=== PATIENT | male | born 1950 | race Caucasian/White ===

== ENCOUNTER 2019-04-25 14:23 | Emergency (ER) | payer MEDICARE, MEDICAID ==
[~2019-04-25] VITALS: Ht 177.8 cm; Wt 63.5 kg
--- NOTE | 2019-04-25 14:50 | NUR ---
PT REPORTS UROLOGIST AT THE IN DR FRANCO
[2019-04-25 15:08] LABS: CLARITY,URINE CLOUDY (Clear); COLOR,URINE YELLOW (Yellow); GLUCOSE, URINE NEGATIVE (Neg); KETONES,URINE NEGATIVE (Neg); LEUKOCYTE ESTERASE ,URINE NEGATIVE (Neg); NITRITES, URINE NEGATIVE (Neg); OCCULT BLOOD,URINE LARGE (Neg); PH,URINE 5.5 (4.8-8.0); PROTEIN,URINE NEGATIVE (Neg); UA COLLECTION TYPE CLN CATCH MIDSTREAM; UROBILINOGEN,URINE 0.2 E.U/dL (0.2-1.0)
[2019-04-25 15:19] LABS: BACTERIA,URINE 1+ /HPF (Neg); MUCUS STRANDS FEW /LPF (Neg); SQUAMOUS EPITHELIAL CELL,UR FEW /LPF (FEW)
[2019-04-25 15:20] LABS: RBC,URINE TNTC /HPF (0-2)
[2019-04-25 16:36] LABS: BASOPHILS # (AUTO) 0.1 X10'3 (0-0.2); BASOPHILS % (AUTO) 1.1 % (0-1); EOSINOPHILS # (AUTO) 0.4 X10'3 (0-0.9); EOSINOPHILS % (AUTO) 4.8 % (0-6); HEMATOCRIT 31.8 % (42.0-52.0); HEMOGLOBIN 10.9 g/dl (14.0-17.9); LYMPHOCYTES # (AUTO) 1.6 X10'3 (1.1-4.8); LYMPHOCYTES % (AUTO) 17.1 % (21-51); MEAN CORPUSCULAR HEMOGLOBIN 31.5 PG (27.0-31.0); MEAN CORPUSCULAR HGB CONC 34.2 g/dL (33.0-36.5); MEAN CORPUSCULAR VOLUME 92.1 FL (78-98); MEAN PLATELET VOLUME 9.1 FL (7.4-10.4); MONOCYTES % (AUTO) 10.7 % (2-12); NEUTROPHILS # (AUTO) 6.1 X10'3 (1.8-7.7); NEUTROPHILS % (AUTO) 66.3 % (42-75); PLATELET COUNT 148 X10'3 (140-440); RED BLOOD COUNT 3.45 X10'6 (4.70-6.10); RED CELL DISTRIBUTION WIDTH 13.5 % (11.5-14.5); WHITE BLOOD COUNT 9.2 X10'3 (4.5-11.0)
[2019-04-25 17:04] LABS: ALANINE AMINOTRANSFERASE 14 U/L (12-78); ALBUMIN 3.6 G/DL (3.4-5.0); ALKALINE PHOSPHATASE 103 IU/L (46-116); ANION GAP 11 (8-16); ASPARTATE AMINO TRANSFERASE 13 U/L (10-37); BILIRUBIN,TOTAL 0.2 MG/DL (0.1-1.0); BLOOD UREA NITROGEN 28 MG/DL (7-18); BUN/CREATININE RATIO 15.4 (5.4-32.0); CALCIUM 8.6 MG/DL (8.5-10.1); CHLORIDE 109 MMOL/L (99-107); CREATININE 1.82 MG/DL (0.60-1.10); GLUCOSE 103 MG/DL (70-104); POTASSIUM 4.7 MMOL/L (3.5-5.1); SODIUM 145 MMOL/L (135-145); TOTAL CARBON DIOXIDE 25.1 MMOL/L (24-32); TOTAL PROTEIN 7.3 G/DL (6.4-8.2); eGFR 37 ML/MIN
--- NOTE | 2019-04-25 17:30 | NUR ---
attempted to place coudet 10g f/c with leg bag, i get almost all the way through and then it bunches up, pt tolerated well, no bleeding, no pain, was unable to place F/C. Provider aware. Pt states that the last time this happened that urologist had to place and dialate
[2019-04-25 18:44] VITALS: BP 180/88
== END 2019-04-25 18:50 | disposition home or self-care (01) ==
LOC: ER 14:24
DX: R33.9 Retention of urine, unspecified (principal); Z88.1 Allergy status to other antibiotic agents
CPT/HCPCS: 36415; 80053; 81001; 85025; 85610; 87088; 99284

== ENCOUNTER 2019-06-15 12:09 | Inpatient (IN) | payer MEDICAID, MEDICARE, OTHER ==
[~2019-06-15] VITALS: Ht 180.3 cm; Wt 64.1 kg
[2019-06-15] MEDS ORDERED: normal saline 1000ml 1,000 ML IV ONE (12:40)
[2019-06-15 12:56] LABS: BASOPHILS # (AUTO) 0.1 X10'3 (0-0.2); BASOPHILS % (AUTO) 0.9 % (0-1); EOSINOPHILS # (AUTO) 0.3 X10'3 (0-0.9); EOSINOPHILS % (AUTO) 2.9 % (0-6); HEMATOCRIT 30.4 % (42.0-52.0); HEMOGLOBIN 10.6 g/dl (14.0-17.9); LYMPHOCYTES # (AUTO) 2.1 X10'3 (1.1-4.8); LYMPHOCYTES % (AUTO) 20.6 % (21-51); MEAN CORPUSCULAR HEMOGLOBIN 31.8 PG (27.0-31.0); MEAN CORPUSCULAR HGB CONC 34.8 g/dL (33.0-36.5); MEAN CORPUSCULAR VOLUME 91.4 FL (78-98); MEAN PLATELET VOLUME 8.7 FL (7.4-10.4); MONOCYTES # (AUTO) 1.2 X10'3 (0-0.9); MONOCYTES % (AUTO) 11.3 % (2-12); NEUTROPHILS # (AUTO) 6.5 X10'3 (1.8-7.7); NEUTROPHILS % (AUTO) 64.3 % (42-75); PLATELET COUNT 183 X10'3 (140-440); RED BLOOD COUNT 3.32 X10'6 (4.70-6.10); RED CELL DISTRIBUTION WIDTH 13.6 % (11.5-14.5); WHITE BLOOD COUNT 10.2 X10'3 (4.5-11.0)
[2019-06-15 13:11] LABS: ALANINE AMINOTRANSFERASE 17 U/L (12-78); ALBUMIN 3.4 G/DL (3.4-5.0); ALKALINE PHOSPHATASE 95 IU/L (46-116); ANION GAP 11 (8-16); ASPARTATE AMINO TRANSFERASE 12 U/L (10-37); BILIRUBIN,TOTAL 0.3 MG/DL (0.1-1.0); BLOOD UREA NITROGEN 32 MG/DL (7-18); BUN/CREATININE RATIO 15.8 (5.4-32.0); CALCIUM 8.9 MG/DL (8.5-10.1); CHLORIDE 103 MMOL/L (99-107); CREATININE 2.02 MG/DL (0.60-1.10); GLUCOSE 110 MG/DL (70-104); POTASSIUM 3.9 MMOL/L (3.5-5.1); SODIUM 136 MMOL/L (135-145); TOTAL CARBON DIOXIDE 22.1 MMOL/L (24-32); TOTAL PROTEIN 6.9 G/DL (6.4-8.2); eGFR 33 ML/MIN
--- NOTE | 2019-06-15 13:14 | NUR ---
relieving RN for break, pt is resting quietly on bed, resp even and unlabored, SB on the monitor 47 to 57 heart rate, no c/o dizziness, lightheadedness, no chest pain/discomfort, skin p/w/d
[2019-06-15 13:21] LABS: CLARITY,URINE SLIGHTLY CLOUDY (Clear); COLOR,URINE YELLOW (Yellow); GLUCOSE, URINE NEGATIVE (Neg); KETONES,URINE NEGATIVE (Neg); LEUKOCYTE ESTERASE ,URINE NEGATIVE (Neg); NITRITES, URINE NEGATIVE (Neg); OCCULT BLOOD,URINE SMALL (Neg); PH,URINE 5.5 (4.8-8.0); PROTEIN,URINE NEGATIVE (Neg); UROBILINOGEN,URINE 0.2 E.U/dL (0.2-1.0)
[2019-06-15 13:22] LABS: UA COLLECTION TYPE FOLEY CATH
--- NOTE | 2019-06-15 13:23 | NUR ---
Dr Terrazas aware of HR 44-50s,
[2019-06-15 13:29] LABS: SQUAMOUS EPITHELIAL CELL,UR FEW /LPF (FEW)
[2019-06-15 13:30] LABS: RBC,URINE 0-2 /HPF (0-2); WBC,URINE 0-4 /HPF (0-4)
[2019-06-15 13:31] LABS: BACTERIA,URINE FEW /HPF (Neg)
[2019-06-15] MEDS ORDERED: ALBU8.5H8 IH (14:20)
[2019-06-15] MEDS ORDERED: HYDR-4383 PO (14:20)
[2019-06-15] MEDS ORDERED: LISI-600 PO (14:20)
[2019-06-15] MEDS ORDERED: POLY17PO10 PO (14:20)
[2019-06-15] MEDS ORDERED: OXYB5TAB16 PO (14:22)
[2019-06-15] MEDS ORDERED: PENT400T17 PO (14:23)
[2019-06-15] MEDS ORDERED: SIMV40TA PO (14:23)
[2019-06-15] MEDS ORDERED: SIME80TA16 PO (14:25)
[2019-06-15] MEDS ORDERED: ATEN50TA PO (14:26)
[2019-06-15] MEDS ORDERED: FLO0.4C PO (14:26)
[2019-06-15] MEDS ORDERED: PANT-47 PO (14:27)
[2019-06-15] MEDS ORDERED: LORA10TA7 PO (14:28)
[2019-06-15] MEDS ORDERED: [UNRECOGNIZED DRUG - CODE] TOP (14:29)
[2019-06-15] MEDS ORDERED: normal saline 1000ml 1,000 ML IV SCH (14:43)
[2019-06-15] MEDS ORDERED: potassium Cl 20 mEq SR tablet PO PRN ×2 (14:45)
[2019-06-15] MEDS ORDERED: potassium CL 10mEq/100ml bag 100 ML IV PRN ×2 (14:45)
[2019-06-15] MEDS ORDERED: magnesium 4gm in 100ml NS 100 ML IV PRN (14:45)
[2019-06-15] MEDS ORDERED: acetaminophen 325mg tablet PO PRN (14:45)
[2019-06-15] MEDS ORDERED: magnesium Cl slow-release 64mg tablet PO PRN (14:45)
[2019-06-15] MEDS ORDERED: ondansetron/PF 4mg/2ml inj IV PRN (14:45)
[2019-06-15] MEDS ORDERED: magnesium 2GM in 50ml NS 50 ML IV PRN (14:45)
--- NOTE | 2019-06-15 15:09 | NUR ---
Patient in room ED 2. I have received report from MARLY Martinez and had the opportunity to ask questions and assume patient care.
[2019-06-15 15:20] VITALS: BP 153/65
--- NOTE | 2019-06-15 16:41 | NUR ---
PAGER ID: [phone] MESSAGE: 315: BRIAN - dropping into the low 40s. patient asymptomatic, awake/alert, lying down in bed, talking w/ family at bedside
[2019-06-15 18:00] VITALS: BP_SYST 153; BP_SYST 155; BP_SYST 156; BP_DIAS 63; BP_DIAS 64; BP_DIAS 70
--- NOTE | 2019-06-15 18:00 | NUR ---
Patient in room MED 315. I have received report from Tena LUKE and had the opportunity to ask questions and assume patient care.
--- NOTE | 2019-06-15 19:26 | NUR ---
Problems reprioritized. Patient report given, questions answered & plan of care reviewed with MARLY Howe.
[2019-06-15] MEDS: K and/or MAG REPLACEMENT MC SCH (20:00)
--- NOTE | 2019-06-15 20:45 | NUR ---
sent page to Mitesh PAGER ID: [phone] MESSAGE: [phone] Pt. [facility] rec has not been done, he is requesting his pentoxifylline. Carley [id number]
[2019-06-15] MEDS ORDERED: oxybutynin 5mg tablet PO PRN (20:50)
[2019-06-15] MEDS ORDERED: simethicone 80mg chew tab PO PRN (20:50)
[2019-06-15] MEDS ORDERED: polyethylene glycol 3350 17gm powd pack PO PRN (20:50)
[2019-06-15] MEDS: atorvastatin 20mg tablet PO SCH (21:19)
[2019-06-15] MEDS: heparin, porcine 5000 units/ml vial SQ SCH (21:19)
[2019-06-15 22:00] VITALS: BP 138/52
[2019-06-16] VITALS (8 sets, daily range): BP systolic 133–160; BP diastolic 60–86
[2019-06-16 00:54] LABS: BASOPHILS # (AUTO) 0.1 X10'3 (0-0.2); BASOPHILS % (AUTO) 1.2 % (0-1); EOSINOPHILS # (AUTO) 0.5 X10'3 (0-0.9); EOSINOPHILS % (AUTO) 5.7 % (0-6); HEMATOCRIT 27.4 % (42.0-52.0); HEMOGLOBIN 9.5 g/dl (14.0-17.9); LYMPHOCYTES # (AUTO) 2.3 X10'3 (1.1-4.8); LYMPHOCYTES % (AUTO) 28.4 % (21-51); MEAN CORPUSCULAR HEMOGLOBIN 31.6 PG (27.0-31.0); MEAN CORPUSCULAR HGB CONC 34.6 g/dL (33.0-36.5); MEAN CORPUSCULAR VOLUME 91.4 FL (78-98); MEAN PLATELET VOLUME 8.7 FL (7.4-10.4); MONOCYTES # (AUTO) 0.9 X10'3 (0-0.9); MONOCYTES % (AUTO) 11.1 % (2-12); NEUTROPHILS # (AUTO) 4.4 X10'3 (1.8-7.7); NEUTROPHILS % (AUTO) 53.6 % (42-75); PLATELET COUNT 172 X10'3 (140-440); RED CELL DISTRIBUTION WIDTH 13.4 % (11.5-14.5); WHITE BLOOD COUNT 8.3 X10'3 (4.5-11.0)
[2019-06-16 01:06] LABS: ALBUMIN 2.9 G/DL (3.4-5.0); ANION GAP 6 (8-16); BLOOD UREA NITROGEN 33 MG/DL (7-18); BUN/CREATININE RATIO 18.4 (5.4-32.0); CALCIUM 8.3 MG/DL (8.5-10.1); CHLORIDE 109 MMOL/L (99-107); CREATININE 1.79 MG/DL (0.60-1.10); GLUCOSE 114 MG/DL (70-104); MAGNESIUM 1.7 MG/DL (1.5-2.4); POTASSIUM 3.9 MMOL/L (3.5-5.1); SODIUM 142 MMOL/L (135-145); TOTAL CARBON DIOXIDE 27.1 MMOL/L (24-32); eGFR 38 ML/MIN
--- NOTE | 2019-06-16 06:00 | NUR ---
Patient in room MED 315. I have received report from MARLY Howe and had the opportunity to ask questions and assume patient care.
--- NOTE | 2019-06-16 06:00 | NUR ---
Problems reprioritized. Patient report given, questions answered & plan of care reviewed with Bettie LUKE.
[2019-06-16] MEDS: heparin, porcine 5000 units/ml vial SQ SCH ×2 (08:00→20:48)
[2019-06-16] MEDS: K and/or MAG REPLACEMENT MC SCH ×2 (08:00→20:00)
[2019-06-16] MEDS ORDERED: atenolol 50mg tablet PO SCH (08:00)
[2019-06-16] MEDS: loratadine 10mg tablet PO SCH (08:51)
[2019-06-16] MEDS: tamsulosin 0.4mg capsule PO SCH (08:51)
[2019-06-16] MEDS: pantoprazole 40mg Tablet.DR PO SCH (08:52)
--- NOTE | 2019-06-16 10:46 | NUR ---
DR. BORJAS AT BEDSIDE. NEW ORDERS RECEIVED: D/C ATENOLOL, KEEP LISINOPRIL ON HOLD FOR NOW, XRAY SPINE, MRI SPINE NO CONTRAST.
--- NOTE | 2019-06-16 10:52 | NUR ---
RADIOLOGY PAGED: [phone]: BRIAN - LUMBAR SPINE XRAY ORDERED. BEDSIDE OR TAKE DOWN? NURSE MARY [id number]
--- NOTE | 2019-06-16 11:04 | NUR ---
MRI PAGED: 315: BRIAN - PATIENT GOING TO XRAY FIRST. WILL PAGED WHEN PATIENT READY FOR MRI. NURSE JEANNA [phone]
--- NOTE | 2019-06-16 11:07 | NUR ---
Pt left floor for X-ray in wheelchair, no sign of distress.
--- NOTE | 2019-06-16 11:20 | NUR ---
Pt came back from X-ray in wheelchair, no sign of distress
--- NOTE | 2019-06-16 16:47 | NUR ---
Pt left for MRI in Wheelchair, no sign of distress
--- NOTE | 2019-06-16 17:30 | NUR ---
Pt came back from MRI via wheelchair, no noted distress
--- NOTE | 2019-06-16 18:00 | NUR ---
Problems reprioritized. Patient report given, questions answered & plan of care reviewed with MARLY Mckeon.
--- NOTE | 2019-06-16 18:00 | NUR ---
Patient in room MED 315. I have received report from Bettie LUKE and had the opportunity to ask questions and assume patient care.
[2019-06-16] MEDS: atorvastatin 20mg tablet PO SCH (20:47)
[2019-06-17 01:24] LABS: BASOPHILS # (AUTO) 0.1 X10'3 (0-0.2); BASOPHILS % (AUTO) 0.8 % (0-1); EOSINOPHILS # (AUTO) 0.5 X10'3 (0-0.9); EOSINOPHILS % (AUTO) 5.1 % (0-6); HEMATOCRIT 29.4 % (42.0-52.0); HEMOGLOBIN 10.3 g/dl (14.0-17.9); LYMPHOCYTES # (AUTO) 2.2 X10'3 (1.1-4.8); LYMPHOCYTES % (AUTO) 22.8 % (21-51); MEAN CORPUSCULAR HEMOGLOBIN 31.9 PG (27.0-31.0); MEAN CORPUSCULAR HGB CONC 35.1 g/dL (33.0-36.5); MEAN CORPUSCULAR VOLUME 90.7 FL (78-98); MEAN PLATELET VOLUME 8.6 FL (7.4-10.4); MONOCYTES # (AUTO) 1.1 X10'3 (0-0.9); MONOCYTES % (AUTO) 11.1 % (2-12); NEUTROPHILS # (AUTO) 5.8 X10'3 (1.8-7.7); NEUTROPHILS % (AUTO) 60.2 % (42-75); PLATELET COUNT 189 X10'3 (140-440); RED BLOOD COUNT 3.24 X10'6 (4.70-6.10); RED CELL DISTRIBUTION WIDTH 13.6 % (11.5-14.5); WHITE BLOOD COUNT 9.6 X10'3 (4.5-11.0)
[2019-06-17 01:27] LABS: ALBUMIN 3.2 G/DL (3.4-5.0); ANION GAP 8 (8-16); BLOOD UREA NITROGEN 24 MG/DL (7-18); BUN/CREATININE RATIO 14.6 (5.4-32.0); CALCIUM 8.6 MG/DL (8.5-10.1); CHLORIDE 106 MMOL/L (99-107); CREATININE 1.64 MG/DL (0.60-1.10); GLUCOSE 108 MG/DL (70-104); MAGNESIUM 1.6 MG/DL (1.5-2.4); POTASSIUM 3.8 MMOL/L (3.5-5.1); SODIUM 140 MMOL/L (135-145); TOTAL CARBON DIOXIDE 26.3 MMOL/L (24-32); eGFR 42 ML/MIN
[2019-06-17 02:00] VITALS: BP 123/54
[2019-06-17 06:00] VITALS: BP 120/76
--- NOTE | 2019-06-17 06:10 | NUR ---
Patient in room MED 315. I have received report from MARLY Howe and had the opportunity to ask questions and assume patient care.
--- NOTE | 2019-06-17 07:18 | NUR ---
Problems reprioritized. Patient report given, questions answered & plan of care reviewed with Puja LUKE.
[2019-06-17] MEDS: loratadine 10mg tablet PO SCH (07:55)
[2019-06-17] MEDS: pantoprazole 40mg Tablet.DR PO SCH (07:55)
[2019-06-17] MEDS: tamsulosin 0.4mg capsule PO SCH (07:56)
[2019-06-17] MEDS: heparin, porcine 5000 units/ml vial SQ SCH (07:56)
[2019-06-17] MEDS: K and/or MAG REPLACEMENT MC SCH (07:58)
[2019-06-17 08:00] VITALS: BP_SYST 108; BP_SYST 117; BP_SYST 99; BP_DIAS 63; BP_DIAS 66; BP_DIAS 68
[2019-06-17 11:00] VITALS: BP 99/66
--- NOTE | 2019-06-17 13:30 | NUR ---
Patient stable for discharge per MD orders. All discharge instructions reviewed, discussed medications and follow up. Patient will make follow up appointment with PCP. All questions answered. PIV discontinued, cannula intact. Clean, dry dressing in place. trolley car operator removed. All personal belongings collected and sent with patient. Patient wheeled to private vehicle by PCT to be transported home by friend at 1330.
== END 2019-06-17 13:27 | disposition home or self-care (01) | DRG 312 ==
LOC: ER 12:09 → ED HOLD 14:54 → MED 3N 15:20
PROVIDERS: ADMIT Internal Medicine; ATTEND Internal Medicine
DX: R55 Syncope and collapse (principal); N17.9 Acute kidney failure, unspecified; I25.10 Atherosclerotic heart disease of native coronary artery without angina pectoris; J44.9 Chronic obstructive pulmonary disease, unspecified; E78.5 Hyperlipidemia, unspecified; I10 Essential (primary) hypertension; Z85.46 Personal history of malignant neoplasm of prostate; Z85.47 Personal history of malignant neoplasm of testis; Z86.73 Personal history of transient ischemic attack (TIA), and cerebral infarction without residual deficits; Z87.891 Personal history of nicotine dependence; Z92.3 Personal history of irradiation; Z88.1 Allergy status to other antibiotic agents
CPT/HCPCS: 36415; 70450; 71045; 72110; 72125; 72148; 74176; 80048; 80053; 81001; 83735; 84484; 85025; 87081; 93005; 93306; 93880; 96360; 99285; G0378; J1644; J2405; J7030